=== PATIENT | female | born 1970 | race Caucasian/White ===

== ENCOUNTER 2020-08-10 16:33 | Emergency (ER) | payer OTHER ==
[2020-08-10] MEDS ORDERED: PREDNISONE 20MG20 MG PO (18:39)
== END 2020-08-10 18:45 | disposition home or self-care (01) ==
LOC: FER 16:33
DX: T78.1XXA Other adverse food reactions, not elsewhere classified, initial encounter (principal); L50.0 Allergic urticaria
CPT/HCPCS: 99283; J1100